=== PATIENT | male | born 1955 | race Caucasian/White ===

== ENCOUNTER → 2016-06-17 | Outpatient (CLI) | payer MEDICARE ==
[~2016-06-17] MED LIST: /DULO30CA OR; /HALO2TA OR; /LAMO15TA OR; /OLAN5ZYD OR; /PANT40TA OR; /PRAV20TA OR; /QUET10TA OR; ABIL20TA2 OR; ABIL5TAB OR; ACET65TA OR; ALLE25CA OR; AMLO10TA OR; ATARAX OR; ATEN100T OR; ATEN25TA PO; ATEN50TA2 OR; ATEN50TA2 PO; ATIV1TAB2 OR; CEFT500T OR; CELE20TA OR; CELEXA PO; CHLO25CA2 OR; CLON0.5T PO; CLON1TAB OR; CLON2TAB OR; CLONAZEPAM PO; DIFL200T OR; DISU250T PO; EFFE37.527 PO; EFFE75CA75 OR; FLEXERIL OR; GABA600T3 OR; HYDR4TAB OR; HYDROCORTISONE0.5 % EXT; HYDROCORTISONE0.5 % TOP; IBUP600T OR; IBUP800T OR; ISOVUE-370 76% 100ML VIAL (Q9967) As Ordered ONE; KLON0.5T OR; KLON0.5T PO; KLON2TAB OR; LASI20TA OR; LASI20TA PO; LISI10TA4 OR; LORA0.5T OR; LOTRIMIN TOP; MELOPOW PO; MELOPOW XX; MILKSUS OR; MIRA1TAB3 PO; MIRAPEX PO; NEFA200T PO; NEUR300C OR; NEUR600T OR; NICO21DI4 TD; OXYC10TA56 OR; OXYC15TA50 OR; OXYC20TA15 OR; OXYCODONE PO; PERC5TAB8 OR; PERC7.5T8 OR; PERCOCET PO; PRAV40TA OR; PRAV40TA2 PO; PRAZ1CAP PO; REST30CA OR; SENN15TA2 PO; SENN8.6T14 OR; SENO8.6T5 OR; SEROQUEL XR PO; STOO100C PO; TENO100T OR; TENO50TA OR; TRAM50TA2 OR; TRAZ100T OR; TRAZ50TA OR; VARE1TA OR; VENL37.5 OR; VENL75TA2 OR; VICO5TAB OR; VICODINES TAB OR; VISTARIL PO; VITA100072 PO; ZANA4CAP OR; ZYPR10TA OR; ZYPREXA PO; [UNRECOGNIZED DRUG - OTHER]; [UNRECOGNIZED DRUG - OTHER]; anexsia; cymbalta; fleet enema PR; klonopin
--- NOTE | 2016-06-17 13:39 | REP ---
CT CHEST WITH IV CONTRAST: TECHNIQUE: Axial contrast enhanced images from the thoracic inlet to the upper abdomen using 100 mL Isovue 370 intravenous contrast material with multiplanar reformations. There is diffuse interstitial fibrotic change in both lungs with emphysematous changes as well. There are no new abnormal lung opacities. There is an irregular parenchymal opacity in the lingula which is stable measuring approximately 1.7 x 1.5 cm. No axillary adenopathy is seen. Subcentimeter anterior mediastinal lymph nodes are stable. There is a right hilar mass which has mildly increased in size measuring 3.4 x 1.9 cm. A subcarinal mass has mildly increased in size measuring 2.7 x 3.5 cm. Lymph nodes in the AP window have also mildly increased in size with three lymph nodes seen, short axis dimension ranges between 10 and 15 mm. There are no pleural or pericardial effusion. Heart is normal in size. In the visualized portions of the upper abdomen there is a hypodense nodule in the left lobe of the liver which is unchanged since the prior study of 11/18/2015. Small sclerotic focus in the posterior right 5th rib is unchanged. There are degenerative changes of the spine. IMPRESSION: Right hilar and mediastinal lymph nodes have mildly increased in size as discussed in detail above when compared to the prior study of the 11/18/2015. No new abnormal lung opacities. Focal irregular parenchymal opacity in the lingula is stable. No change in small nodule left lobe of the liver. No change in small sclerotic focus posterior right 5th rib. Signed by Satish Acharya MD 06/17/2016 04:50 P
== END ==
LOC: M RAD 10:53
PROVIDERS: ATTEND Nurse Practitioner Family
DX: Z85.118 Personal history of other malignant neoplasm of bronchus and lung (principal); R59.9 Enlarged lymph nodes, unspecified; K76.9 Liver disease, unspecified
CPT/HCPCS: 71260; Q9967

== ENCOUNTER → 2016-07-07 | Outpatient (CLI) | payer MEDICARE ==
[~2016-07-07] MED LIST changes: -ISOVUE-370 76% 100ML VIAL (Q9967) As Ordered ONE
--- NOTE | 2016-07-08 09:42 | REP ---
PET/CT: History: Restaging lung carcinoma. Comparisons: Comparison PET CTs are reviewed from February 20, 2015, and September 19, 2014. Comparison chest CT study is from June 17, 2016. This was read as showing right hilar and mediastinal lymph nodes which had increased in size slightly. TECHNIQUE: 52 minutes following the intravenous injection of a 11.1 mCi dose of F-18 FDG, three-dimensional PET scintigraphy is acquired from the skull base to the proximal thighs. Triplanar noncontrast CT scanning is acquired through the same anatomic range for attenuation correction, and image registration with scan parameters optimized to minimize radiation exposure to the patient. PET scintigraphy and CT datasets were fused and displayed on a workstation with multiplanar and projection display capability. PET/CT Findings: There is non hypermetabolic diffuse pattern of uptake in the subpleural areas of interstitial disease in the left lower lobe and right upper lobe. The stable nodular opacity in the region of the lingula does not show hypermetabolic uptake, maximum standard uptake value is 1.1. No other abnormal pulmonary parenchymal hypermetabolic uptake is seen. The left paratracheal mediastinal lymph node seen on recent CT measuring 1.5 cm in greatest diameter is mildly hypermetabolic with maximum standard uptake value of 2.6. The right subcarinal mediastinal lymph node described recently also shows mildly hypermetabolic uptake, maximum standard uptake value is 2.6 as well. No other hypermetabolic hilar or mediastinal lucina uptake is seen. There is minimal retroareolar uptake bilaterally with the CT findings consistent with mild gynecomastia. No abnormal abdominal or pelvic FDG accumulation is seen. No abnormal skeletal hypermetabolic uptake is seen. The head and neck areas unremarkable. Impression: Two of the recently identified mediastinal lymph nodes demonstrate borderline hypermetabolic uptake. No other suspicious hypermetabolic uptake seen. Signed by Clifford Balderrama MD 07/08/2016 10:13 A
== END ==
LOC: M PLARAD 12:50
PROVIDERS: ATTEND Internal Medicine Medical Oncology
DX: R91.8 Other nonspecific abnormal finding of lung field (principal); R59.0 Localized enlarged lymph nodes; Z85.118 Personal history of other malignant neoplasm of bronchus and lung; C34.90 Malignant neoplasm of unspecified part of unspecified bronchus or lung
CPT/HCPCS: 78815; A9552

== ENCOUNTER → 2016-08-23 | Outpatient (CLI) | payer MEDICARE ==
[~2016-08-23] MED LIST changes: +ALBU17IN INH; +EPIP0.3I2; +INCR1INH IN; +LAMI1TAB7 PO; +LAMO200T PO; +LITH300C PO; +OMEP40CA2 PO; +PRAZ2CAP PO; +SERO200T PO; +SERO50TA PO; +SERT-138 PO; +TERA1CAP46 PO; +TERA2CAP3 PO; +TIZA4CAP3 PO
--- NOTE | 2016-08-25 08:34 | REP ---
MR BRAIN WITHOUT AND WITH CONTRAST: HISTORY: Lung cancer. CONTRAST: ProHance 22 mL. Several punctate areas of increased signal intensity on T2-weighted images are present in the subcortical white matter. This represents small vessel ischemic disease. There is no intraparenchymal hemorrhage, infarct, mass or midline shift. There is no abnormal enhancement. The ventricular system is normal in appearance. There is no extracerebral collection. The other sinuses are clear. IMPRESSION: Minimal small vessel ischemic disease. Signed by Aramis Denny MD 08/25/2016 09:44 A
== END ==
LOC: M RAD 10:17
PROVIDERS: ATTEND Internal Medicine Medical Oncology
DX: C34.90 Malignant neoplasm of unspecified part of unspecified bronchus or lung (principal)
CPT/HCPCS: 70553; A9576

== ENCOUNTER → 2016-08-27 | Outpatient (CLI) | payer MEDICARE ==
--- NOTE | 2016-08-27 12:59 | REP ---
Clinical: Small cell lung cancer for reevaluation. Comparison: 06/17/2016. Findings: Diffuse COPD and emphysematous changes along with scattered scarring and fibrosis are essentially unchanged from prior examination. The lesion in the anterior periphery of the left upper lobe with scarring towards the peripheral pleural surface remains stable and again measures 17 mm maximal diameter. No new consolidation, mass or nodule is appreciated. No pleural effusion. No pneumothorax. Mediastinal and hilar adenopathy is unchanged. Trace atherosclerotic changes to the thoracic aorta and coronary arteries noted along with mild stable cardiomegaly. Surrounding musculoskeletal structures are intact. Limited upper abdomen demonstrates normal bilateral adrenal glands. Impression: 1. Chronic COPD and emphysematous changes with scattered scarring and fibrosis remains unchanged. 2. 17 mm mass lesion in the left upper lobe with associated scarring to pleural surface remains stable and no new lesions are identified. The associated mediastinal adenopathy is unchanged. Signed by Abad Flores MD 08/27/2016 12:51 P
== END ==
LOC: M RAD 10:33
PROVIDERS: ATTEND Internal Medicine Pulmonary Disease
DX: R91.8 Other nonspecific abnormal finding of lung field (principal); J44.9 Chronic obstructive pulmonary disease, unspecified; J84.10 Pulmonary fibrosis, unspecified

== ENCOUNTER 2016-10-12 09:37 | Outpatient (CLI) | payer MEDICARE ==
[~2016-10-12] VITALS: Ht 188 cm; Wt 115.7 kg
[~2016-10-12 09:37] MED LIST changes: +LIDOCAINE 2% INJ 100 MG/5 ML SDV (FOR ANES.) As Ordered ONE; +PROPOFOL 200 MG/20 ML VIAL As Ordered ONE; -SERO50TA PO
[2016-10-12] MEDS ORDERED: NS 1,000 ML IV ONE (10:00)
[2016-10-12] MEDS ORDERED: SERO50TA PO (10:39)
--- NOTE | 2016-10-12 11:39 | ROOR ---
Patient Name: Marcello Soni Procedure Date: 10/12/2016 11:25 AM Date of : 1955 Age: 60 Room: [facility] Gender: Male Note Status: Finalized Procedure: Colonoscopy Indications: High risk colon cancer surveillance: Personal history of colonic polyps, Last colonoscopy: March 2013 Providers: Nikunj ISBELL MD Referring MD: John Degroot NP Requesting Provider: Medicines: Monitored Anesthesia Care Complications: No immediate complications. Procedure: Pre-Anesthesia Assessment: - The heart rate, respiratory rate, oxygen saturations, blood pressure, adequacy of pulmonary ventilation, and response to care were monitored throughout the procedure. The Colonoscope was introduced through the anus and advanced to the cecum, identified by appendiceal orifice and ileocecal valve. The colonoscopy was performed without difficulty. The patient tolerated the procedure well. The quality of the bowel preparation was adequate and fair. Findings: The perianal and digital rectal examinations were normal. (EXAM: Complete, PREP: Fair/Adequate) Small Internal Hemorrhoids. The entire examined colon appeared normal on direct and retroflexion views. Impression: - (EXAM: Complete, PREP: Fair/Adequate) - Small Internal Hemorrhoids. - The entire colon is normal on direct and retroflexion views. - No specimens collected. Recommendation: - Repeat colonoscopy in 5 years for adenoma surveillance. Nikunj Isbell MD Nikunj ISBELL MD 10/12/2016 11:39:07 AM This report has been signed electronically. Number of Addenda: 0 Note Initiated On: 10/12/2016 11:25 AM Estimated Blood Loss: Estimated blood loss: none.
[2016-10-12 12:10] VITALS: BP 160/87
== END 2016-10-12 12:18 | disposition home or self-care (01) ==
LOC: M OPP 09:37
PROVIDERS: ATTEND Internal Medicine Gastroenterology
DX: Z12.11 Encounter for screening for malignant neoplasm of colon (principal); K64.8 Other hemorrhoids; Z86.010 Personal history of colon polyps; E78.5 Hyperlipidemia, unspecified; Z86.79 Personal history of other diseases of the circulatory system; M19.90 Unspecified osteoarthritis, unspecified site; F41.9 Anxiety disorder, unspecified; F31.9 Bipolar disorder, unspecified; I63.9 Cerebral infarction, unspecified; J44.9 Chronic obstructive pulmonary disease, unspecified; Z85.118 Personal history of other malignant neoplasm of bronchus and lung; Z92.21 Personal history of antineoplastic chemotherapy; G47.8 Other sleep disorders; R06.83 Snoring; Z99.81 Dependence on supplemental oxygen; Z87.891 Personal history of nicotine dependence; Z91.013 Allergy to seafood; Z79.899 Other long term (current) drug therapy

== ENCOUNTER → 2016-12-31 | Outpatient (CLI) | payer MEDICARE ==
[~2016-12-31] MED LIST changes: -LIDOCAINE 2% INJ 100 MG/5 ML SDV (FOR ANES.) As Ordered ONE; -PROPOFOL 200 MG/20 ML VIAL As Ordered ONE; +SERO50TA PO
[2016-12-31 09:34] LABS: BASO # 0.1 10^3/uL (0.0-0.2); BASO % 1.1 % (0.0-1.0); EOS # 0.2 10^3/uL (0.0-0.50); EOS % 1.5 % (0.0-3.0); IMMATURE GRANULOCYTE % 0.4 % (0-0); LYMPH % 19.3 % (24.0-44.0); MEAN CORPUSCULAR HEMOGLOBIN 31.1 pg (27.0-33.0); MEAN CORPUSCULAR HGB CONC 35.3 g/dl (32.0-36.5); MEAN CORPUSCULAR VOLUME 88.3 fl (80.0-96.0); MONO # 0.5 10^3/uL (0.0-0.8); MONO % 4.8 % (0.0-5.0); NEUTROPHILS # 7.6 10^3/uL (1.8-7.7); NEUTROPHILS % 72.9 % (36.0-66.0); PLATELET COUNT, AUTOMATED 256 10^3/uL (150-450); RED CELL DISTRIBUTION WIDTH 13.5 % (11.5-14.5); WHITE BLOOD COUNT 10.4 10^3/uL (4.0-10.0)
[2016-12-31 10:13] LABS: ALBUMIN/GLOBULIN RATIO 1.11 (1.00-1.93); ALKALINE PHOSPHATASE 97 U/L (45-117); ALT/SGPT 33 U/L (12-78); ANION GAP 6 MEQ/L (8-16); AST/SGOT 21 U/L (7-37); BILIRUBIN,TOTAL 0.9 MG/DL (0.2-1.0); BLOOD UREA NITROGEN 8 MG/DL (7-18); CALCIUM LEVEL 9.1 MG/DL (8.5-10.1); CARBON DIOXIDE LEVEL 31 MEQ/L (21-32); CHLORIDE LEVEL 105 MEQ/L (98-107); CREATININE FOR GFR 0.97 MG/DL (0.70-1.30); GLOMERULAR FILTRATION RATE > 60.0 (>56); GLUCOSE, FASTING 93 MG/DL (70-105); POTASSIUM SERUM 3.5 MEQ/L (3.5-5.1); SODIUM LEVEL 142 MEQ/L (136-145); TOTAL PROTEIN 7.6 GM/DL (6.4-8.2)
--- NOTE | 2016-12-31 10:13 | REP ---
CT CHEST WITHOUT CONTRAST: 12/31/2016. Comparison: 08/27/2016, 06/17/2016, 11/18/2015. Clinical history: Adenocarcinoma lung, follow-up. Findings: Noncontrast images were obtained. Lung argueta again show volume loss in the right hemithorax. Fibrotic changes in the right more than left base. There is underlying COPD and emphysematous changes. Pulmonary artery hypertension noted. Clips from prior lower lobectomy on the right noted. No pleural effusion. I see no calcified pleural plaque or pleural-based mass. Chronic change in the lingula again seen and unchanged in size from the previous study. Some linear stranding in the subpleural region anterior aspect left upper lobe also stable. Full appearance of the right hilum is unchanged with clips posterior and inferior to it, some of this may be nodes or mass. Some subcarinal nodes in conglomerate fashion has an AP diameter of 2.5 cm, 2.6 cm transverse, unchanged. Lymph nodes in the mediastinum with the largest is 14 mm, previously 15 mm with other AP window and prevascular space nodes also similar to the last study. No axillary or supraclavicular mass. Bone windows show the sternum, manubrium, medial clavicles, small portions of humeral heads, glenohumeral joints, scapula and ribs all grossly stable. There is posttraumatic healing fracture posterior right fifth rib with further remodeling. Spine shows superior endplate compression T9 unchanged. The other vertebral levels intact. All are stable. The upper abdomen shows some fatty infiltration of the liver and a small hypodensity lateral segment left lobe unchanged. No definite hiatal hernia. Left atrial and ventricular enlargement noted. There are calcifications at the aortic arch. No pericardial thickening or effusion. Adrenal glands intact. That portion of spleen, gallbladder and pancreas seen were unremarkable. Upper poles of kidneys seen in part intact. Impression: 1. Stable CT with hilar and mediastinal nodes similar or slightly smaller than the previous exam. No new nodes. 2. There are no new lung findings with irregular parenchymal finding in the lingula, unchanged in size with some basilar fibrosis, volume loss in the right lung and surgical clips at the right hilum. Lung argueta, stable. Advanced changes, COPD and fibrosis. 3. Old compression T9, stable. Cardiomegaly with left atrial and ventricular enlargement with tortuous aorta all stable. Signed by Ronak Braga MD 12/31/2016 05:29 P
== END ==
LOC: M LAB 08:44
PROVIDERS: ATTEND Internal Medicine Medical Oncology
DX: C34.90 Malignant neoplasm of unspecified part of unspecified bronchus or lung (principal); I51.7 Cardiomegaly; Z51.81 Encounter for therapeutic drug level monitoring; Z79.899 Other long term (current) drug therapy

== ENCOUNTER → 2016-12-31 | Outpatient (CLI) | payer MEDICARE | LOC: M LAB 08:51 | PROVIDERS: ATTEND Psychiatry & Neurology Psychiatry | DX: Z51.81 Encounter for therapeutic drug level monitoring (principal); Z79.899 Other long term (current) drug therapy ==

== ENCOUNTER → 2017-05-09 | Outpatient (CLI) | payer MEDICARE ==
[2017-05-09 09:19] LABS: BASO # 0.1 10^3/uL (0.0-0.2); BASO % 1.3 % (0.0-1.0); EOS # 0.1 10^3/uL (0.0-0.50); EOS % 1.6 % (0.0-3.0); HEMATOCRIT 46.2 % (42.0-52.0); HEMOGLOBIN 16.2 g/dl (14.0-18.0); IMMATURE GRANULOCYTE % 1.2 % (0-3.0); LYMPH # 1.5 10^3/uL (1.5-4.5); LYMPH % 16.7 % (24.0-44.0); MEAN CORPUSCULAR HEMOGLOBIN 31.6 pg (27.0-33.0); MEAN CORPUSCULAR HGB CONC 35.1 g/dl (32.0-36.5); MEAN CORPUSCULAR VOLUME 90.1 fl (80.0-96.0); MONO # 0.5 10^3/uL (0.0-0.8); MONO % 5.6 % (0.0-5.0); NEUTROPHILS # 6.6 10^3/uL (1.8-7.7); NEUTROPHILS % 73.6 % (36.0-66.0); PLATELET COUNT, AUTOMATED 221 10^3/uL (150-450); RED BLOOD COUNT 5.13 10^6/uL (4.30-6.10); RED CELL DISTRIBUTION WIDTH 13.7 % (11.5-14.5)
[2017-05-09 09:26] LABS: ALBUMIN 4.1 GM/DL (3.2-5.2); ALBUMIN/GLOBULIN RATIO 1.17 (1.00-1.93); ALKALINE PHOSPHATASE 111 U/L (45-117); ALT/SGPT 43 U/L (12-78); ANION GAP 12 MEQ/L (8-16); AST/SGOT 20 U/L (7-37); BLOOD UREA NITROGEN 14 MG/DL (7-18); CALCIUM LEVEL 8.6 MG/DL (8.5-10.1); CARBON DIOXIDE LEVEL 21 MEQ/L (21-32); CHLORIDE LEVEL 108 MEQ/L (98-107); CHOLESTEROL LEVEL 205 MG/DL (<200); CHOLESTEROL RISK RATIO 5.394 (<5); CREATININE FOR GFR 1.09 MG/DL (0.70-1.30); GLOMERULAR FILTRATION RATE > 60.0 (>56); GLUCOSE, FASTING 120 MG/DL (70-100); HDL CHOLESTEROL 38 MG/DL (>40); LDL CHOLESTEROL 139.4 MG/DL (<100); NON-HDL-C 167 MG/DL; POTASSIUM SERUM 3.8 MEQ/L (3.5-5.1); SODIUM LEVEL 141 MEQ/L (136-145); TOTAL PROTEIN 7.6 GM/DL (6.4-8.2); TRIGLYCERIDES LEVEL 138 MG/DL (<150)
[2017-05-11 00:06] LABS: PSA TOTAL 2.4 ng/mL (0.0-4.0)
== END ==
LOC: M LAB 08:15
DX: K21.9 Gastro-esophageal reflux disease without esophagitis (principal); N40.1 Benign prostatic hyperplasia with lower urinary tract symptoms; I10 Essential (primary) hypertension
CPT/HCPCS: 80053

== ENCOUNTER → 2017-06-30 | Outpatient (CLI) | payer MEDICARE | LOC: M RAD 09:21 | DX: C18.9 Malignant neoplasm of colon, unspecified (principal) | CPT/HCPCS: 71046 ==

== ENCOUNTER → 2017-07-11 | Outpatient (CLI) | payer MEDICARE | LOC: M RAD 07:37 | DX: Z85.118 Personal history of other malignant neoplasm of bronchus and lung (principal); Z90.2 Acquired absence of lung [part of] | CPT/HCPCS: 71250 ==

== ENCOUNTER → 2017-11-08 | Outpatient (CLI) | payer MEDICARE ==
[2017-11-08 10:04] LABS: BASO # 0.1 10^3/uL (0.0-0.2); BASO % 0.8 % (0.0-1.0); EOS # 0.1 10^3/uL (0.0-0.50); EOS % 1.2 % (0.0-3.0); HEMATOCRIT 42.9 % (42.0-52.0); HEMOGLOBIN 15.1 g/dl (13.5-17.5); IMMATURE GRANULOCYTE % 0.5 % (0-3.0); LYMPH # 1.9 10^3/uL (1.5-4.5); LYMPH % 17.5 % (24.0-44.0); MEAN CORPUSCULAR HEMOGLOBIN 32.8 pg (27.0-33.0); MEAN CORPUSCULAR HGB CONC 35.2 g/dl (32.0-36.5); MEAN CORPUSCULAR VOLUME 93.1 fl (80.0-96.0); MONO # 0.4 10^3/uL (0.0-0.8); MONO % 3.9 % (0.0-5.0); NEUTROPHILS # 8.1 10^3/uL (1.8-7.7); NEUTROPHILS % 76.1 % (36.0-66.0); PLATELET COUNT, AUTOMATED 218 10^3/uL (150-450); RED BLOOD COUNT 4.61 10^6/uL (4.30-6.10); RED CELL DISTRIBUTION WIDTH 13.7 % (11.5-14.5); WHITE BLOOD COUNT 10.6 10^3/uL (4.0-10.0)
[2017-11-08 10:25] LABS: ALBUMIN 3.9 GM/DL (3.2-5.2); ALBUMIN/GLOBULIN RATIO 1.08 (1.00-1.93); ALKALINE PHOSPHATASE 98 U/L (45-117); ALT/SGPT 36 U/L (12-78); ANION GAP 11 MEQ/L (8-16); AST/SGOT 25 U/L (7-37); BILIRUBIN,TOTAL 1.5 MG/DL (0.2-1.0); BLOOD UREA NITROGEN 11 MG/DL (7-18); CALCIUM LEVEL 8.9 MG/DL (8.5-10.1); CARBON DIOXIDE LEVEL 24 MEQ/L (21-32); CHLORIDE LEVEL 108 MEQ/L (98-107); CHOLESTEROL LEVEL 167 MG/DL (<200); CHOLESTEROL RISK RATIO 3.976 (<5); CREATININE FOR GFR 1.07 MG/DL (0.70-1.30); GLOMERULAR FILTRATION RATE > 60.0 (>56); GLUCOSE, FASTING 97 MG/DL (70-100); HDL CHOLESTEROL 42 MG/DL (>40); LDL CHOLESTEROL 99 MG/DL (<100); NON-HDL-C 125 MG/DL; POTASSIUM SERUM 3.7 MEQ/L (3.5-5.1); SODIUM LEVEL 143 MEQ/L (136-145); TOTAL PROTEIN 7.5 GM/DL (6.4-8.2); TRIGLYCERIDES LEVEL 128 MG/DL (<150)
[2017-11-08 10:35] LABS: ESTIMATED AVERAGE GLUCOSE 111 MG/DL (60-110); HEMOGLOBIN A1c 5.5 %
== END ==
LOC: M LAB 09:08
DX: K21.9 Gastro-esophageal reflux disease without esophagitis (principal); R73.01 Impaired fasting glucose; I10 Essential (primary) hypertension; E78.00 Pure hypercholesterolemia, unspecified
CPT/HCPCS: 80053

== ENCOUNTER → 2017-12-22 | Outpatient (CLI) | payer MEDICARE | LOC: M EKG 10:04 | DX: Z51.81 Encounter for therapeutic drug level monitoring (principal); Z79.899 Other long term (current) drug therapy | CPT/HCPCS: 93005 ==

== ENCOUNTER → 2018-01-03 | Outpatient (CLI) | payer MEDICARE | LOC: M RAD 09:06 | DX: C34.90 Malignant neoplasm of unspecified part of unspecified bronchus or lung (principal) | CPT/HCPCS: 71046 ==

== ENCOUNTER 2018-03-17 20:55 | Emergency (ER) | payer MEDICARE ==
[~2018-03-17 20:55] MED LIST changes: +ALBU17IN2 INH; +ATIV1TAB10 PO; +BREO1INH3 INH; +EFFE37.5 PO; -EFFE37.527 PO; -LAMO200T PO; +LAMO200T2 PO; +TERA1CAP3 PO; -TERA1CAP46 PO; +TIZA4CAP PO; -TIZA4CAP3 PO; +ZOLO100T PO
[2018-03-17] MEDS ORDERED: SODIUM BICARBONATE 8.4% INJ 50 ML SYRINGE ONE (20:56)
[2018-03-17] MEDS ORDERED: EPINEPHrine 1MG/10ML SYRINGE 1.5IN ONE (20:56)
[2018-03-17 21:29] VITALS: BP 0/0
== END 2018-03-17 21:09 | disposition expired ==
LOC: M ED 20:55
DX: I46.9 Cardiac arrest, cause unspecified (principal)

== ENCOUNTER → 2018-03-18 | Outpatient (REF) ==
[2018-03-20 11:33] LABS: INFLUENZA A AMPLIFICATION NEGATIVE (NEGATIVE); INFLUENZA B AMPLIFICATION NEGATIVE (NEGATIVE)
== END ==
LOC: M LAB REF 03-17 10:48
DX: Z00.00 Encounter for general adult medical examination without abnormal findings (principal)